=== PATIENT | female | born 1960 | race Hispanic/Latino ===

== ENCOUNTER 2018-05-08 17:05 | Outpatient (CLI) | payer MEDICAID | END 2018-05-08 17:06 | disposition home or self-care (01) | LOC: CARDIO 17:05 ==

== ENCOUNTER 2018-05-11 09:13 | Outpatient (CLI) | payer MEDICAID | END 2018-05-11 09:14 | disposition home or self-care (01) | LOC: CARDIO 09:13 | DX: R06.02 Shortness of breath (principal); E66.09 Other obesity due to excess calories; Z95.0 Presence of cardiac pacemaker ==